=== PATIENT | male | born 1970 | race Caucasian/White ===

== ENCOUNTER 2023-05-21 06:33 | Day surgery (SDC) | payer BC, SELFPAY ==
[2023-05-21] VITALS (8 sets, daily range): BP systolic 105–149; BP diastolic 64–79; BMI 33.5
[2023-05-21 09:33] LABS: Glucose - Point of Care 152 mg/dl (70-99)
[2023-05-21 10:28] LABS: Glucose - Point of Care 125 mg/dl (70-99)
--- NOTE | 2023-05-21 11:19 | PTCARENOTE ---
Dr. Haines aware of pt.s O2 sat on RA, ok for discharge to [facility], Dr. Trimble at bedside ok for discharge
== END 2023-05-21 12:10 | disposition home or self-care (01) ==
LOC: SDS 06:33
PROVIDERS: ATTENDING PHYSICIAN Internal Medicine Critical Care Medicine
DX: J98.11 Atelectasis (principal); R05.3 Chronic cough; R91.8 Other nonspecific abnormal finding of lung field
CPT/HCPCS: 31623; 31624; 82962; 87015; 87070; 87102; 87116; 87205; 88112

== ENCOUNTER → 2024-03-04 15:07 | Outpatient (REF) | payer BC, SELFPAY | LOC: RAD 15:07 | PROVIDERS: ATTENDING PHYSICIAN Internal Medicine Critical Care Medicine; FAMILY PHYSICIAN Family Medicine | DX: R91.1 Solitary pulmonary nodule (principal) | CPT/HCPCS: 71250 ==

== ENCOUNTER → 2024-10-24 15:09 | Outpatient (REF) | payer BC, SELFPAY | LOC: RAD 15:09 | PROVIDERS: ATTENDING PHYSICIAN Internal Medicine Critical Care Medicine; FAMILY PHYSICIAN Family Medicine | DX: C34.90 Malignant neoplasm of unspecified part of unspecified bronchus or lung (principal) | CPT/HCPCS: 71250 ==